=== PATIENT | male | born 1980 | race Caucasian/White ===

== ENCOUNTER 2022-03-20 13:16 | Emergency (ER) | payer OTHER, BC ==
[2022-03-20 13:57] LABS: CHLORIDE,CL 99 mEq/L (98-106); ESTIMATED GFR 86 mL/min (>=60); SODIUM,NA 133 mEq/L (136-145)
== END 2022-03-20 16:43 | disposition home or self-care (01) ==
LOC: CC.ED 13:16
DX: S70.212A Abrasion, left hip, initial encounter (principal); I45.10 Unspecified right bundle-branch block; R00.0 Tachycardia, unspecified; V69.9XXA Occupant (driver) (passenger) of heavy transport vehicle injured in unspecified traffic accident, initial encounter; Y92.410 Unspecified street and highway as the place of occurrence of the external cause
CPT/HCPCS: 36415; 70450; 71045; 72125; 72170; 80053; 80307; 84484; 85025; 93005; 93010; 99284; 99285